=== PATIENT | female | born 1965 | race Caucasian/White ===

== ENCOUNTER 2017-03-15 03:10 | Emergency (ER) | payer MEDICARE, OTHER | END 2017-03-15 04:07 | disposition left against medical advice (07) | LOC: CED 03:10 | DX: Z53.21 Procedure and treatment not carried out due to patient leaving prior to being seen by health care provider (principal) | CPT/HCPCS: J1885; J2405 ==

== ENCOUNTER 2017-04-01 00:18 | Emergency (ER) | payer MEDICARE, OTHER ==
--- NOTE | ~2017-04-01 | CT2 ---
[facility] A Service of [facility] RADIOLOGY TEXT RESULTS PATIENT: CHRISTINA VELÁZQUEZ LOCATION: [facility] : 61 UNIT #: [id number] AGE: [address]: Sherrie Crow APRN SEX: F ORDER DR: [id number] [id number] [facility]. [place], [place] [address] [id number] E MR#: [id number] Acc #: [id number] NAME: CHRISTINA VELÁZQUEZ : 1965 SEX: F STUDY DATE/TIME: 04/01/2017 4:05 UNIT: [facility] ROOM: STUDY DESCRIPTION: CT Abd and Pelv W Cont Attending Physician: Sherrie Crow A.P.R.N. Ordering Physician: Sherrie Crow A.P.R.N. Primary Care Physician: No Primary Care Physician MEDICAL IMAGING REPORT This report is preliminary unless electronic signature is present EXAM CT abdomen and pelvis with contrast. INDICATION Leukocytosis. Generalized abdominal pain for the past 2 days. PROCEDURE Contrast-enhanced CT of the abdomen and pelvis. This CT exam was performed with one or more of the following radiation dose reduction techniques: automatic exposure control, adjustment of mA and/or kV according to patient size, and iterative reconstruction. COMPARISON None FINDINGS Included lung bases predominantly clear. The liver, spleen, kidneys, adrenal glands, pancreas are unremarkable. Bowel loops nondilated. Large colonic stool burden. PELVIS WITH CONTRAST: No pelvic mass or fluid. No aggressive appearing bone lesion. IMPRESSION No acute findings. Large colonic stool burden. Dictated by... Omero Triplett M.D. [facility] A Service of [facility] RADIOLOGY TEXT RESULTS PATIENT: CHRISTINA VELÁZQUEZ LOCATION: [facility] : 61 UNIT #: [id number] AGE: [address]: Sherrie Crow APRN SEX: F ORDER DR: THIS IS AN ELECTRONICALLY VERIFIED REPORT Omero Triplett M.D. at 04/04/2017 7:20 AM EED/tmw TD: 04/01/2017 10:00 JOB #: [id number] MEDICAL IMAGING REPORT Page 1 of 1 COPY
[2017-04-01 02:14] LABS: URINE SOURCE CLEAN CATCH
[2017-04-01 02:22] LABS: BASOPHIL# 0.1 X10e3 (0-0.3); BASOPHIL% 0.6 % (0-2.5); EOSINOPHIL# 1.1 X10e3 (0-0.7); EOSINOPHIL% 7.8 % (0.0-7.0); HEMATOCRIT 34.2 % (35.0-45.0); HEMOGLOBIN 10.6 gm/dL (12.0-16.0); LYMPHOCYTE# 3.5 X10e3 (1.0-3.5); LYMPHOCYTE% 24.3 % (17.0-45.0); MEAN CELL VOLUME 83.1 FL (83-96); MEAN CORPUSCULAR HEMOGLOBIN 25.8 PG (28-34); MEAN CORPUSCULAR HGB CONC 31.1 g/dL (30-36); MEAN PLATELET VOLUME 8.2 FL (6.5-11.5); MONOCYTE% 7.1 % (3.0-12.0); NEUTROPHIL# 8.7 X10e3 (1.5-7.1); NEUTROPHIL% 60.2 % (40-75); PLATELET COUNT 333 X10e3 (140-420); RED BLOOD COUNT 4.11 X10e (3.90-5.30); RED CELL DISTRIBUTION WIDTH 16.2 % (11.0-15.5); WHITE BLOOD COUNT 14.4 X10e3 (4.0-10.5)
[2017-04-01 02:28] LABS: DIFF IND NO
[2017-04-01 02:29] LABS: URINE APPEARANCE CLEAR; URINE BILIRUBIN NEG (NEG); URINE BLOOD NEG (NEG); URINE COLOR YELLOW; URINE GLUCOSE NEG (NEG); URINE KETONE NEG (NEG); URINE LEUKOCYTE ESTERASE 1+ (NEG); URINE NITRATE NEG (NEG); URINE PH 7.5 (5-8); URINE PROTEIN NEG (NEG); URINE SPECIFIC GRAVITY 1.006 (1.003-1.035); URINE UROBILINOGEN 0.2 MG/DL (NEG)
[2017-04-01 02:32] LABS: URBCS1 AUWI 0-2 /[HPF] (0-2); URINE BACTERIA AUWI NEG (NEGATIVE); URINE SQUAMOUS EPITHELIAL CELL NONE SEEN /[HPF]
[2017-04-01 02:33] LABS: CULTURE INDICATED? NO
[2017-04-01 02:37] LABS: AMPHETAMINE NEG (NEG); BARBITURATES NEG (NEG); BENZODIAZEPINES POS (NEG); COCAINE NEG (NEG); MARIJUANA NEG (NEG); OPIATES NEG (NEG); TRICYCLIC ANTIDEPRESSANTS NEG (NEG); U METHADONE NEG (NEG)
[2017-04-01 02:45] LABS: BILIRUBIN, DIRECT 0.1 mg/dL (0.0-0.2); BILIRUBIN,INDIRECT 0.8 mg/dL (0.0-0.9); BILIRUBIN,TOTAL 0.9 mg/dL (0.2-2.0); BUN/CREATININE RATIO 31.66; CALCIUM SERUM 9.2 mg/dL (8.4-10.2); CREATININE SERUM 0.6 mg/dL (0.6-1.4); GLOM FILT RATE Estimated 103.3 mL/min (>60); PROTEIN TOTAL SERUM 7.4 g/dL (6.0-8.3)
== END 2017-04-01 05:16 | disposition home or self-care (01) ==
LOC: CED 00:18
PROVIDERS: Emergency Medicine
DX: K59.00 Constipation, unspecified (principal); J44.9 Chronic obstructive pulmonary disease, unspecified; F31.9 Bipolar disorder, unspecified; I10 Essential (primary) hypertension; Z88.5 Allergy status to narcotic agent
CPT/HCPCS: 36415; 74177; 80048; 80076; 80307; 81003; 82150; 83690; 85025; 96361; 96374; 96375; 99284; Q9967